=== PATIENT | male | born 1980 | race Caucasian/White ===

== ENCOUNTER 2019-10-09 12:24 | Emergency (ER) | payer SELFPAY ==
[~2019-10-09] VITALS: Ht 182.9 cm; Wt 122.5 kg
[~2019-10-09 12:24] MED LIST: HYDR-3679 OR
[2019-10-09 12:33] VITALS: BP 141/92
== END 2019-10-09 14:58 | disposition home or self-care (01) ==
LOC: ER 12:26
DX: J20.9 Acute bronchitis, unspecified (principal)
CPT/HCPCS: 71046